=== PATIENT | male | born 1945 | race Caucasian/White ===

== ENCOUNTER 2016-09-24 10:15 | Outpatient (RCR) | payer MEDICARE, OTHER ==
[~2016-09-24 10:15] MED LIST: BENICAR HCT 12.1 TA1 PO; CENTRUM SILVER1 CTB PO; CRILL OIL PO; NORVASC 10MG10 MG PO
== END 2016-11-10 | disposition still patient (30) ==
LOC: WSPT
DX: M47.22 Other spondylosis with radiculopathy, cervical region (principal)
CPT/HCPCS: G0283-GP; G8981-GP; G8982-GP

== ENCOUNTER 2017-03-20 07:49 | Outpatient (RCR) | payer MEDICARE, OTHER | END 2017-05-16 09:14 | disposition still patient (30) | LOC: WSC 07:49 → WSPT 08:00 → WSC 05-16 09:14 | DX: M47.12 Other spondylosis with myelopathy, cervical region (principal); Z74.09 Other reduced mobility | CPT/HCPCS: G8984-GP; G8985-GP ==

== ENCOUNTER 2017-06-05 10:30 | Outpatient (RCR) | payer MEDICARE, OTHER | END 2017-06-05 17:30 | disposition home or self-care (01) | LOC: WSPT 10:30 | DX: M25.511 Pain in right shoulder (principal) | CPT/HCPCS: G8984-GP; G8985-GP ==

== ENCOUNTER 2017-11-27 08:00 | Outpatient (RCR) | payer MEDICARE, OTHER | END 2018-01-13 | disposition home or self-care (01) | LOC: WSPT | DX: M47.12 Other spondylosis with myelopathy, cervical region (principal); Z88.2 Allergy status to sulfonamides; Z88.8 Allergy status to other drugs, medicaments and biological substances | CPT/HCPCS: G8981-GP; G8982-GP ==

== ENCOUNTER 2018-09-20 08:35 | Emergency (ER) | payer MEDICARE, OTHER ==
[~2018-09-20] VITALS: Ht 177.8 cm; Wt 92.3 kg
[2018-09-20 08:43] VITALS: TEMP 97.5
[2018-09-20] MEDS ORDERED: BENICAR 20MG TA20 MG PO (08:59)
[2018-09-20] MEDS ORDERED: XALATAN EYE DROPS OD (09:00)
[2018-09-20] MEDS ORDERED: NORVASC 10MG10 MG PO (09:00)
[2018-09-20] MEDS ORDERED: TIMOLOL MALEATE5 M1 OP (09:01)
[2018-09-20] MEDS ORDERED: PRILOSEC 20MG20 MG PO (09:02)
[2018-09-20 09:26] VITALS: BP 145/79; PULSE 67
== END 2018-09-20 09:30 | disposition home or self-care (01) ==
LOC: COL.ER 08:35
DX: H11.31 Conjunctival hemorrhage, right eye (principal); I10 Essential (primary) hypertension

== ENCOUNTER 2018-11-25 08:30 | Outpatient (RCR) | payer MEDICARE, OTHER ==
[~2018-11-25 08:30] MED LIST changes: +BENICAR 20MG TA20 MG PO; +PRILOSEC 20MG20 MG PO; +TIMOLOL MALEATE5 M1 OP; +XALATAN EYE DROPS OD
== END 2019-01-11 | disposition home or self-care (01) ==
LOC: WSPT
DX: M54.17 Radiculopathy, lumbosacral region (principal)
CPT/HCPCS: G8978-GP; G8979-GP; G8980-GP

== ENCOUNTER → 2018-12-09 | Outpatient (CLI) | payer MEDICARE, OTHER | LOC: COL.RAD 12-02 07:30 | DX: Z13.6 Encounter for screening for cardiovascular disorders (principal) ==

== ENCOUNTER 2019-07-09 10:15 | Outpatient (RCR) | payer MEDICARE, OTHER | END 2019-07-13 13:25 | disposition home or self-care (01) | LOC: WSPT 10:15 | DX: M54.17 Radiculopathy, lumbosacral region (principal) ==

== ENCOUNTER 2019-10-20 14:00 | Outpatient (RCR) | payer MEDICARE, OTHER | END 2019-10-27 13:04 | disposition home or self-care (01) | LOC: WSOT 14:00 | DX: M72.0 Palmar fascial fibromatosis [Dupuytren] (principal) ==

== ENCOUNTER 2019-12-22 07:00 | Outpatient (RCR) | payer MEDICARE, OTHER | END 2020-02-21 | disposition home or self-care (01) | LOC: WSPT | DX: M54.17 Radiculopathy, lumbosacral region (principal) ==

== ENCOUNTER 2020-05-24 08:00 | Outpatient (RCR) | payer MEDICARE, OTHER | END 2020-06-22 10:12 | disposition home or self-care (01) | LOC: WSPT 08:00 | DX: M54.17 Radiculopathy, lumbosacral region (principal) ==

== ENCOUNTER 2020-09-27 10:00 | Outpatient (RCR) | payer MEDICARE, OTHER | END 2020-11-13 | disposition home or self-care (01) | LOC: WSPT | DX: M54.5 Low back pain (principal) ==

== ENCOUNTER → 2020-10-09 | Outpatient (CLI) | payer MEDICARE, OTHER | LOC: COL.RAD 14:26 | DX: N28.1 Cyst of kidney, acquired (principal); N13.30 Unspecified hydronephrosis ==

== ENCOUNTER → 2020-10-31 | Outpatient (CLI) | payer MEDICARE, OTHER | LOC: COL.RAD 06:44 | DX: N40.0 Benign prostatic hyperplasia without lower urinary tract symptoms (principal); K57.30 Diverticulosis of large intestine without perforation or abscess without bleeding | CPT/HCPCS: Q9967 ==

== ENCOUNTER 2021-01-31 08:30 | Outpatient (RCR) | payer MEDICARE, OTHER | END 2021-02-02 08:49 | disposition home or self-care (01) | LOC: WSPT 08:30 | DX: M54.5 Low back pain (principal) ==

== ENCOUNTER 2021-04-20 08:15 | Outpatient (RCR) | payer MEDICARE, OTHER | END 2021-06-12 13:23 | disposition home or self-care (01) | LOC: PT.GENESIS | DX: M54.5 Low back pain (principal) ==

== ENCOUNTER 2021-11-07 08:15 | Outpatient (RCR) | payer MEDICARE, OTHER | END 2021-11-09 | disposition home or self-care (01) | LOC: PT.GENESIS | DX: M54.50 Low back pain, unspecified (principal) ==

== ENCOUNTER 2023-03-08 10:53 | Emergency (ER) | payer MEDICARE, OTHER ==
[~2023-03-08] VITALS: Ht 177.8 cm; Wt 88.6 kg
[2023-03-08 11:00] VITALS: TEMP 97.2
[2023-03-08 12:00] VITALS: BP 158/85; PULSE 79
== END 2023-03-08 12:00 | disposition home or self-care (01) ==
LOC: COL.ER 10:53
DX: S61.412A Laceration without foreign body of left hand, initial encounter (principal); W26.0XXA Contact with knife, initial encounter

== ENCOUNTER 2023-07-21 14:30 | Outpatient (RCR) | payer MEDICARE, OTHER | END 2023-08-09 | disposition home or self-care (01) | LOC: PT.GENESIS | DX: M25.551 Pain in right hip (principal); M54.50 Low back pain, unspecified ==

== ENCOUNTER 2024-05-05 09:00 | Outpatient (RCR) | payer MEDICARE, OTHER | END 2024-05-09 | disposition home or self-care (01) | LOC: PT.GENESIS | DX: M76.899 Other specified enthesopathies of unspecified lower limb, excluding foot (principal); Z87.828 Personal history of other (healed) physical injury and trauma ==

== ENCOUNTER 2024-05-24 08:00 | Outpatient (RCR) | payer MEDICARE, OTHER | END 2024-06-09 | disposition home or self-care (01) | LOC: PT.GENESIS | DX: M76.899 Other specified enthesopathies of unspecified lower limb, excluding foot (principal) ==